=== PATIENT | male | born 1970 | race Caucasian/White ===

== ENCOUNTER 2020-02-09 08:11 | Outpatient (REF) | payer BC, SELFPAY | END 2020-02-09 08:12 | disposition home or self-care (01) | LOC: HO.WFDLDS 08:11 | PROVIDERS: PCP Internal Medicine; Visit Provider Internal Medicine | DX: Z20.828 Contact with and (suspected) exposure to other viral communicable diseases (principal) | CPT/HCPCS: C9803; U0003 ==

== ENCOUNTER 2020-05-04 10:54 | Outpatient (REF) | payer BC, SELFPAY | END 2020-05-04 10:55 | disposition home or self-care (01) | LOC: HO.WFDLDS 10:54 | PROVIDERS: PCP Internal Medicine; Visit Provider Internal Medicine | DX: Z20.822 Contact with and (suspected) exposure to COVID-19 (principal) | CPT/HCPCS: 36415; C9803; U0003; U0005 ==